=== PATIENT | male | born 1970 | race Caucasian/White ===

== ENCOUNTER 2020-04-28 00:29 | Emergency (ER) | payer OTHER, BC, SELFPAY ==
--- NOTE | ~2020-04-28 | XR_ITS ---
XR finger 4th LT min 2V 04/28/2020 01:04 Indication: Injury to the left fourth finger Procedure: 4 views left fourth finger Comparison: 02/04/2006 Findings: There is a comminuted nondisplaced fracture left fourth distal phalanx with overlying soft tissue swelling. No foreign bodies. 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 Impression: 1: Comminuted nondisplaced fracture left fourth distal phalanx. Reviewed, dictated and finalized at location A. [facility] RETENTION REPRESENTATIVE Impression: 1: Comminuted nondisplaced fracture left fourth distal phalanx.
[2020-04-28 00:33] VITALS: BP 138/81; PULSE 71; RESP 18; TEMP 36.1; O2SAT 100
--- NOTE | 2020-04-28 00:44 | ED.UPPEXIN ---
HPI - Extremity Injury (Upper) General Chief Complaint: Extremity Injury, Upper Stated Complaint: smashed finger, cold, numb Time Seen by Provider: 04/28/20 00:39 Source: patient Mode of arrival: ambulatory Limitations: no limitations History of Present Illness HPI narrative: A 49-year-old male presents to the emergency department with complaints of a crush injury to his finger on his left hand. Patient notes it was the fourth digit. He states he was carrying something very heavy at work when he had another coworker went to go sit down, the item slipped smashing his finger between the abdomen and the floor. Patient jerked his finger out right away. He states initially it bruised but he did not think much of it. As the day progressed on the swelling continued and what worried him and caused him to come to the emergency department as the distal tip of his finger started to turn cold. Related Data Home Medications Medication Instructions Recorded Confirmed omeprazole [Prilosec] 40 mg PO DAILY 04/28/20 Allergies Allergy/AdvReac Type Severity Reaction Status Date / Time No Known Allergies Allergy Mild Unverified 04/28/20 00:36 Review of Systems Review of Systems: Narrative: CONSTITUTIONAL: Denies fever, chills, or sweats. EYES: Denies visual changes, redness, or discharge. ENT: Denies rhinorrhea, congestion, sore throat, or otalgia. CARDIOVASCULAR: Denies chest pain, palpitations, or edema. RESPIRATORY: Denies cough or dyspnea. GASTROINTESTINAL: Denies abdominal pain, nausea, vomiting, or diarrhea. GENITOURINARY: Denies dysuria or hematuria. SKIN: Denies rash or itching. MUSCULOSKELETAL: Crush injury to fourth digit on left hand. NEUROLOGIC: Denies headache, numbness, dizziness, or weakness. PSYCHIATRIC: Denies anxiety or depression. [facility] Social History Social History (System 02/26/19 @ 10:11 by Archana Pedraza) Gender identity (if verbalized by the patient): Male Sexual Orientation (if Verbalized by the Patient): Straight or Heterosexual Exam Narrative: Exam Narrative: GENERAL: Well-appearing, well-nourished, and in no acute distress. HEAD: Normocephalic, atraumatic. EYES: PERRLA and EOMI. ENT: Nares clear, no rhinorrhea or epistaxis. Mucous membranes moist. Oropharynx without tonsillar hypertrophy exudate or other lesions. Bilateral TMs pearly acosta nonbulging NECK: Supple. No adenopathy or masses. No carotid bruits or JVD CHEST: Clear to auscultation. No respiratory distress. No wheezes rales or rhonchi HEART: Regular rate and rhythm. No murmur heard. Normal peripheral pulses. ABDOMEN: Soft, nontender, nondistended, normal active bowel sounds. EXTREMITIES: Normal range of motion. No edema. Ecchymotic distal phalanx of the fourth digit of the left hand with pallor noted to the nailbed SKIN: Warm, dry, no rash. NEURO: No focal deficits. Alert and oriented x3. PSYCH: Normal mood and affect. Course Consultations Consultation #1: Case discussed with Dr. Marmolejo. He states that he does not do hand coverage and would recommend speaking with someone else. Time: 01:33 Consultation #2: Talked with [facility] plastics fellow on-call. After describing the patient's injury and physical exam findings in detail they are reassured that the wound is not open. They recommend AlumaFoam splint, warm compresses and discharged to follow-up in their clinic. Date: 04/28/20 Time: 02:12 Vital Signs Vital signs: Vital Signs Temperature 36.1 C L 04/28/20 00:33 Pulse Rate 71 04/28/20 00:33 Respiratory Rate 18 04/28/20 00:33 Blood Pressure 138/81 04/28/20 00:33 Pulse Oximetry 100 04/28/20 00:33 Temperature 36.1 C L 04/28/20 00:33 Pulse Rate 71 04/28/20 00:33 Respiratory Rate 18 04/28/20 00:33 Blood Pressure 138/81 04/28/20 00:33 Pulse Oximetry 100 04/28/20 00:33 MDM - Extremity Injury (Upper) MDM Narrative Medical decision making narrative: In brief this is a 49-year-old male w
== END 2020-04-28 02:28 | disposition home or self-care (01) ==
PROVIDERS: Emergency Provider Emergency Medicine; PCP Family Medicine
DX: S62.665A Nondisplaced fracture of distal phalanx of left ring finger, initial encounter for closed fracture (principal); W23.0XXA Caught, crushed, jammed, or pinched between moving objects, initial encounter
CPT/HCPCS: 29130; 73140; 99283; 99284